=== PATIENT | female | born 1975 | race Caucasian/White ===

== ENCOUNTER 2016-08-10 16:05 | Emergency (ER) | payer OTHER ==
[~2016-08-10] VITALS: Ht 162.6 cm; Wt 58.5 kg
[~2016-08-10 16:05] MED LIST: SERT100T12 PO
[2016-08-10] MEDS ORDERED: ZOLP10 PO (16:44)
[2016-08-10] MEDS ORDERED: DIVA250T25 PO (16:44)
[2016-08-10 19:23] LABS: BASOPHILS % (AUTO) 0.7 % (0.0-2.0); EOSINOPHILS % (AUTO) 1.3 % (1.0-6.0); HEMATOCRIT 44.3 % (36-46); HEMOGLOBIN 14.7 g/dL (12.0-16.0); LYMPHOCYTES # (AUTO) 3.7 K/uL (1.0-4.8); LYMPHOCYTES % (AUTO) 39.2 % (22.0-44.0); MEAN CORPUSCULAR HGB CONC 33.1 G/dL (31.0-37.0); MEAN CORPUSCULAR VOLUME 91 fL (80-100); MONOCYTES # (AUTO) 0.6 K/uL (0.1-1.0); MONOCYTES % (AUTO) 6.2 % (2.0-9.0); NEUTROPHILS % (AUTO) 52.6 % (40.0-70.0); PLATELET COUNT (AUTO) 434 K/uL (150-450); RED BLOOD CELL COUNT(AUTO) 4.89 MIL/uL (4.00-5.20); RED CELL DISTRIBUTION WIDTH 14.6 % (11.5-14.5); WHITE BLOOD COUNT (AUTO) 9.4 K/uL (4.5-11.0)
[2016-08-10 19:27] LABS: ANION GAP 8 mmol/L (8-16); CALCIUM, TOTAL 9.4 mg/dL (8.8-10.5); CARBON DIOXIDE 29 mmol/L (22-29); CHLORIDE 99 mmol/L (98-107); CREATININE 0.84 mg/dL (0.60-1.30); GLOMERULAR FILTR. RATE CALC > 60 mL/min (>60); POTASSIUM 3.3 mmol/L (3.5-5.1); SODIUM SERUM 136 mmol/L (136-145); UREA NITROGEN, BLOOD 11 mg/dL (7-18)
[2016-08-10 19:33] LABS: ALANINE AMINOTRANSFERASE 28 U/L (12-78); ALBUMIN 4.1 g/dL (3.4-5.0); ASPARTATE AMINOTRANSFERASE 18 U/L (15-37); BILIRUBIN,TOTAL 0.5 mg/dL (0.1-1.0); TOTAL PROTEIN, SERUM 8.4 g/dL (6.4-8.2)
[2016-08-10 20:46] VITALS: BP 145/75
== END 2016-08-10 20:49 | disposition home or self-care (01) ==
LOC: EMS 16:08
DX: S20.212A Contusion of left front wall of thorax, initial encounter (principal); W50.0XXA Accidental hit or strike by another person, initial encounter; Y93.89 Activity, other specified; Y92.89 Other specified places as the place of occurrence of the external cause; Y99.8 Other external cause status
CPT/HCPCS: 93005; 99285

== ENCOUNTER 2018-02-12 13:04 | Emergency (ER) | payer SELFPAY ==
[~2018-02-12] VITALS: Ht 152.4 cm; Wt 52.3 kg
[~2018-02-12 13:04] MED LIST changes: +DIVA-76 PO; +ZOLP10TA7 PO
[2018-02-12 14:49] VITALS: BP 115/76
== END 2018-02-12 14:50 | disposition home or self-care (01) ==
LOC: EMS 13:04
DX: K08.89 Other specified disorders of teeth and supporting structures (principal)
CPT/HCPCS: 99283

== ENCOUNTER 2018-10-28 14:36 | Emergency (ER) | payer OTHER ==
[~2018-10-28] VITALS: Ht 152.4 cm; Wt 52.3 kg
[2018-10-28 16:30] LABS: BASOPHILS % (AUTO) 0.6 % (0.0-2.0); EOSINOPHILS % (AUTO) 1.5 % (1.0-6.0); HEMATOCRIT 41.2 % (36-46); HEMOGLOBIN 13.9 g/dL (12.0-16.0); LYMPHOCYTES # (AUTO) 2.8 K/uL (1.0-4.8); LYMPHOCYTES % (AUTO) 36.2 % (22.0-44.0); MEAN CORPUSCULAR HEMOGLOBIN 30.3 pg (26.0-34.0); MEAN CORPUSCULAR HGB CONC 33.8 G/dL (31.0-37.0); MEAN CORPUSCULAR VOLUME 90 fL (80-100); MONOCYTES # (AUTO) 0.5 K/uL (0.1-1.0); MONOCYTES % (AUTO) 5.9 % (2.0-9.0); NEUTROPHILS # (AUTO) 4.4 K/uL (1.8-7.7); NEUTROPHILS % (AUTO) 55.8 % (40.0-70.0); PLATELET COUNT (AUTO) 434 K/uL (150-450); RED CELL DISTRIBUTION WIDTH 14.3 % (11.5-14.5)
[2018-10-28 16:37] LABS: ANION GAP 9 mmol/L (8-16); CALCIUM, TOTAL 9.9 mg/dL (8.8-10.5); CARBON DIOXIDE 30 mmol/L (22-29); CHLORIDE 102 mmol/L (98-107); CREATININE 0.85 mg/dL (0.60-1.30); GLOMERULAR FILTR. RATE CALC > 60 mL/min (>60); GLUCOSE,RANDOM 97 mg/dL (70-110); POTASSIUM 4.1 mmol/L (3.5-5.1); SODIUM SERUM 141 mmol/L (136-145); UREA NITROGEN, BLOOD 8 mg/dL (7-18)
[2018-10-28 16:43] LABS: ALANINE AMINOTRANSFERASE 14 U/L (12-78); ALBUMIN 4.1 g/dL (3.4-5.0); ALKALINE PHOSPHATASE 55 U/L (46-116); ASPARTATE AMINOTRANSFERASE 12 U/L (15-37); BILIRUBIN,TOTAL 0.4 mg/dL (0.1-1.0); TOTAL PROTEIN, SERUM 7.8 g/dL (6.4-8.2)
[2018-10-28 16:56] LABS: APPEARANCE,URINE CLEAR (CLEAR); BILIRUBIN,URINE NEGATIVE (NEGATIVE); GLUCOSE, URINE (UA) NEGATIVE (NEGATIVE); KETONES,URINE NEGATIVE (NEGATIVE); LEUKOCYTE ESTERASE ,URINE SMALL (NEGATIVE); NITRATE,URINE NEGATIVE (NEGATIVE); OCCULT BLOOD,URINE LARGE (NEGATIVE); PROTEIN,URINE NEGATIVE (NEGATIVE)
[2018-10-28 16:59] LABS: BACTERIA,URINE Few /HPF (None Seen); RBC,URINE 26-50 /HPF (0-2); SQUAMOUS EPITHELIAL CELL,UR Moderate /LPF (None Seen)
[2018-10-28 17:34] VITALS: BP 141/77
== END 2018-10-28 17:37 | disposition home or self-care (01) ==
LOC: EMS 14:36
DX: N39.0 Urinary tract infection, site not specified (principal); R00.2 Palpitations; F41.9 Anxiety disorder, unspecified; F32.9 Major depressive disorder, single episode, unspecified
CPT/HCPCS: 87086; 93005

== ENCOUNTER 2019-02-11 14:30 | Emergency (ER) | payer OTHER ==
[~2019-02-11] VITALS: Ht 157.5 cm; Wt 52.3 kg
[~2019-02-11 14:30] MED LIST changes: -ZOLP10TA7 PO
[2019-02-11] MEDS: BACITRACIN 0.9 GM PACKET OINTMENT TP ONE (16:44)
[2019-02-11] MEDS: POVIDONE-IODINE 10% 15 ML SOLUTION UD TP ONE (16:44)
[2019-02-11] MEDS: ACETAMINOPHEN/CODEINE 300-30 MG TABLET PO ONE (16:44)
[2019-02-11] MEDS: LIDOCAINE 1% 10 ML VIAL INJ ONE (17:02)
[2019-02-11] MEDS: PERTUSS(ACELL),DIPH,TET VAC/PF 0.5 ML VIAL IM ONE (17:25)
[2019-02-11 17:39] VITALS: BP 99/63
== END 2019-02-11 17:56 | disposition home or self-care (01) ==
LOC: EMS 14:32
DX: S01.112A Laceration without foreign body of left eyelid and periocular area, initial encounter (principal); F41.9 Anxiety disorder, unspecified; F32.9 Major depressive disorder, single episode, unspecified; Y04.2XXA Assault by strike against or bumped into by another person, initial encounter; Y93.89 Activity, other specified; Y92.89 Other specified places as the place of occurrence of the external cause; Y99.8 Other external cause status
CPT/HCPCS: 12011; 90471; 90715; 99283; J3490

== ENCOUNTER 2019-02-17 09:44 | Emergency (ER) | payer OTHER ==
[~2019-02-17] VITALS: Ht 160 cm; Wt 52.0 kg
[2019-02-17 09:55] VITALS: BP 101/72
[2019-02-17] MEDS ORDERED: BACITRACIN 0.9 GM PACKET OINTMENT TP ONE (11:00)
== END 2019-02-17 11:12 | disposition home or self-care (01) ==
LOC: EMS 09:46
DX: S00.12XA Contusion of left eyelid and periocular area, initial encounter (principal); F41.9 Anxiety disorder, unspecified; F32.9 Major depressive disorder, single episode, unspecified; X58.XXXA Exposure to other specified factors, initial encounter; Y93.9 Activity, unspecified; Y92.89 Other specified places as the place of occurrence of the external cause; Y99.8 Other external cause status

== ENCOUNTER 2022-07-07 13:58 | Emergency (ER) | payer OTHER ==
[~2022-07-07] VITALS: Ht 157.5 cm; Wt 61.4 kg
[~2022-07-07 13:58] MED LIST changes: +DIVA-111 PO; -DIVA-76 PO; +SERT-162 PO; -SERT100T12 PO
[2022-07-07] MEDS ORDERED: IBUP-1506 PO (14:04)
[2022-07-07] MEDS ORDERED: KETOROLAC TROMETHAMINE 30 MG/ML VIAL IM ONE (16:15)
[2022-07-07] MEDS ORDERED: METHOCARBAMOL 500 MG TABLET PO ONE (16:15)
[2022-07-07] MEDS ORDERED: GABAPENTIN 300 MG CAPSULE PO ONE (16:15)
[2022-07-07] MEDS ORDERED: CYCL-448 PO (18:52)
[2022-07-07] MEDS ORDERED: GABA-1181 PO (18:52)
[2022-07-07] MEDS ORDERED: NAPR-1025 PO (18:52)
[2022-07-07 18:55] VITALS: BP 130/76
== END 2022-07-07 19:06 | disposition home or self-care (01) ==
LOC: EMS 13:58
DX: S29.012A Strain of muscle and tendon of back wall of thorax, initial encounter (principal); F32.9 Major depressive disorder, single episode, unspecified; F41.9 Anxiety disorder, unspecified; X58.XXXA Exposure to other specified factors, initial encounter; Y93.89 Activity, other specified; Y92.89 Other specified places as the place of occurrence of the external cause; Y99.8 Other external cause status
CPT/HCPCS: 99283; 72070; 96372; J1885

== ENCOUNTER 2025-06-07 10:00 | Emergency (ER) | payer OTHER ==
[~2025-06-07] VITALS: Ht 157.5 cm; Wt 66.8 kg
[~2025-06-07 10:00] MED LIST changes: +CYCL-448 PO; -DIVA-111 PO; +GABA-1181 PO; +IBUP-1506 PO; +NAPR-1196 PO; -SERT-162 PO
[2025-06-07 10:02] VITALS: TEMP 97.9
[2025-06-07] MEDS ORDERED: DULO30CA62 PO (10:06)
[2025-06-07] MEDS ORDERED: LAMO-24 PO (10:06)
[2025-06-07] MEDS ORDERED: RISP3TAB35 PO (10:06)
[2025-06-07] MEDS ORDERED: IBUP-1492 PO (10:43)
[2025-06-07] MEDS: KETOROLAC TROMETHAMINE 60 MG/2 ML VIAL IM ONE (11:04)
[2025-06-07 11:05] VITALS: BP 128/81; PULSE 79; RESP 18; O2SAT 99
== END 2025-06-07 11:16 | disposition home or self-care (01) ==
LOC: EMS 10:01
DX: S22.32XA Fracture of one rib, left side, initial encounter for closed fracture (principal); F32.A Depression, unspecified; F41.9 Anxiety disorder, unspecified; Z79.899 Other long term (current) drug therapy; W19.XXXA Unspecified fall, initial encounter; Y93.89 Activity, other specified; Y92.89 Other specified places as the place of occurrence of the external cause; Y99.8 Other external cause status
CPT/HCPCS: 99283; 71101; 96372; J1885